=== PATIENT | female | born 2000 | race Caucasian/White ===

== ENCOUNTER 2018-12-29 20:58 | Emergency (ER) | payer OTHER, MEDICAID ==
[~2018-12-29] VITALS: Ht 160 cm; Wt 59.0 kg
[2018-12-29] MEDS ORDERED: IBU600 MG PO (22:16)
[2018-12-29] MEDS ORDERED: ROBAXIN500 MG PO (22:16)
[2018-12-29 22:24] VITALS: BP 104/62
== END 2018-12-29 22:20 | disposition home or self-care (01) ==
LOC: M.ERS 20:58
DX: S16.1XXA Strain of muscle, fascia and tendon at neck level, initial encounter (principal); R07.89 Other chest pain; V43.52XA Car driver injured in collision with other type car in traffic accident, initial encounter; Y93.89 Activity, other specified; Y92.410 Unspecified street and highway as the place of occurrence of the external cause; Y99.8 Other external cause status